=== PATIENT | female | born 1960 | race Caucasian/White ===

== ENCOUNTER 2019-12-26 09:59 | Inpatient (IN) | payer OTHER ==
[~2019-12-26] VITALS: Ht 154.9 cm; Wt 61.7 kg
--- NOTE | 2019-12-26 10:10 | NUR ---
PARAMEDICS GAVE A TOTAL OF 100MCG OF FENTANYL.
--- NOTE | 2019-12-26 10:12 | NUR ---
[employer] AT BEDSIDE OBTAINING REPORT AT THIS TIME. DOCTOR TORSTEN RODRIGUEZ EVALUATED UPON ARRIVAL VIA PARAMEDICS
--- NOTE | 2019-12-26 10:14 | NUR ---
RUG CLEANER HELPER TO TAKE PATIENT TO SCAN.
--- NOTE | 2019-12-26 10:14 | NUR ---
DEPUTY BUSTAMANTE OBTAINED REPORT FROM PATIENT.
[2019-12-26] MEDS ORDERED: ONDANSETRON 4 MG/2 ML VIAL ONE (10:39)
[2019-12-26] MEDS ORDERED: HYDROMORPHONE 2 MG/1 ML DISP.SYRIN ONE (10:39)
[2019-12-26] MEDS ORDERED: ONDANSETRON 4 MG/2 ML VIAL IV ONE (10:45)
[2019-12-26] MEDS ORDERED: HYDROMORPHONE 1 MG/1 ML DISP.SYRIN IV ONE (10:45)
--- NOTE | 2019-12-26 10:47 | NUR ---
PATIENT IS BACK FROM RADIOLOGY DEPARTMENT GIVEN ADDITIONAL PAIN MEDICATION. FOLLOW UP XRAYS BEING DONE AT BEDSIDE
--- NOTE | 2019-12-26 11:08 | NUR ---
PATIENT WILL BE ADMITTED. LAB WORK UP TO BE DONE AND DOCTOR TORSTEN TO CALL [facility] FOR ADMISSION
[2019-12-26] MEDS ORDERED: IV NORMAL SALINE 1000 ML BAG IV ONE (11:15)
[2019-12-26 11:38] LABS: BASOPHILS % (AUTO) 0.2 % (0.0-2.0); EOSINOPHILS # (AUTO) 0.1 K/uL (0.0-0.7); EOSINOPHILS % (AUTO) 0.4 % (0.0-7.0); HEMATOCRIT 40.7 % (31.2-41.9); HEMOGLOBIN 13.4 g/dL (10.9-14.3); MEAN CORPUSCULAR HEMOGLOBIN 28.5 uug (24.7-32.8); MEAN CORPUSCULAR HGB CONC 33 g/dL (32.3-35.6); MEAN CORPUSCULAR VOLUME 86.7 fL (75.5-95.3); MONOCYTES # (AUTO) 0.6 K/uL (2.0-10.0); MONOCYTES % (AUTO) 4.5 % (0.0-11.0); NEUTROPHILS # (AUTO) 11.8 K/uL (1.8-8.9); NEUTROPHILS % (AUTO) 80.9 % (38.5-71.5); PLATELET COUNT (AUTO) 291 K/uL (179-408); RED BLOOD CELL COUNT(AUTO) 4.69 MIL/uL (3.63-4.92); WHITE BLOOD COUNT (AUTO) 14.5 K/uL (3.8-11.8)
--- NOTE | 2019-12-26 11:43 | NUR ---
PATIENT TAKEN FOR ADDITIONAL CT SCAN.
[2019-12-26 11:50] LABS: CREATININE 0.7 mg/dL (0.6-1.3)
--- NOTE | 2019-12-26 11:52 | NUR ---
DOCTOR SARMIENTO SPOKE TO BOTH DOCTOR AARON AND MAURA FOR ADMISSION TO THE HOSPITAL
[2019-12-26] MEDS ORDERED: ACETAMINOPHEN 325 MG TABLET PO PRN (12:00)
[2019-12-26] MEDS ORDERED: MAGNESIUM HYDROXIDE 30 ML LIQUID UDC PO PRN (12:00)
[2019-12-26] MEDS ORDERED: Z GUARD REMEDY PASTE 57 GM TUBE TOP PRN (12:00)
[2019-12-26 12:02] LABS: BILIRUBIN,DIRECT 0.1 mg/dL (0.0-0.2); BILIRUBIN,TOTAL 0.6 mg/dL (0.2-1.0); TOTAL PROTEIN, SERUM 6.9 g/dL (6.4-8.2)
--- NOTE | 2019-12-26 12:24 | NUR ---
REPORT GIVEN TO KELL DUVAL. PATIENT GOING TO ROOM 303
[2019-12-26] MEDS: ONDANSETRON 4 MG/2 ML VIAL IV PRN ×2 (12:58→19:01)
[2019-12-26] MEDS: MORPHINE SULFATE 2 MG/1 ML DISP.SYRIN IV PRN ×3 (13:11→23:45)
[2019-12-26 15:00] VITALS: BP 110/61
--- NOTE | 2019-12-26 15:50 | NUR ---
SPOKE TO DR. AARON AND STATE THAT PATIENT DOES NOT NEED SURGERY, PATIENT NEEDS PAIN CONTROL AND PLACEMENT WITH ORDER FOR WEIGHT BEARING TOLERATED.
--- NOTE | 2019-12-26 19:43 | NUR ---
PATIENT IN BED CONTINUING TO HAVE PAIN AND PRN PAIN MEDICATION GIVEN ORDERED. IV INTACT AND PATENT. CALL LIGHT WITHIN REACH, WILL CONTINUE TO MONITOR.
[2019-12-26 20:56] LABS: *BILIRUBIN,URIN NEGATIVE (NEGATIVE); *BLOOD, URINE 2+ (NEGATIVE); *CLARITY,URINE CLEAR (CLEAR); *COLOR,URINE YELLOW (YELLOW); *KETONES,URINE 1+ (NEGATIVE); *UROBILINOGEN,URINE 0.2 E.U./dl (NORMAL); LEUKOCYTE ESTERASE ,URINE NEGATIVE (NEGATIVE); NITRITE, URINE NEGATIVE (NEGATIVE); PH,URINE 5.5 (5.0-8.0); UGLUCOSE NEGATIVE (NEGATIVE)
[2019-12-26 21:11] LABS: BACTERIA,URINE FEW /HPF (NONE SEEN); SQUAMOUS EPITHELIAL CELL,UR MODERATE /HPF (NONE SEEN)
[2019-12-26 21:12] LABS: URINE AMORPHOUS URATE MODERATE /HPF
[2019-12-26 21:17] VITALS: BP 117/70
[2019-12-26] MEDS: LISINOPRIL 20 MG TABLET PO SCH (22:00)
[2019-12-27] MEDS: MORPHINE SULFATE 2 MG/1 ML DISP.SYRIN IV PRN ×4 (02:21→15:08)
[2019-12-27 05:09] VITALS: BP 114/67
[2019-12-27 06:51] LABS: CREATININE 0.6 mg/dL (0.6-1.3); MAGNESIUM 1.7 mg/dL (1.8-2.4); POTASSIUM 3.4 mmol/L (3.5-5.1)
[2019-12-27 07:28] LABS: BASOPHILS % (AUTO) 0.2 % (0.0-2.0); LYMPHOCYTES % (AUTO) 13.3 % (20.5-51.5); MEAN CORPUSCULAR HEMOGLOBIN 29.8 uug (24.7-32.8); MEAN CORPUSCULAR HGB CONC 35 g/dL (32.3-35.6); MEAN CORPUSCULAR VOLUME 85.2 fL (75.5-95.3); MONOCYTES # (AUTO) 0.5 K/uL (2.0-10.0); MONOCYTES % (AUTO) 6.7 % (0.0-11.0); NEUTROPHILS # (AUTO) 6.1 K/uL (1.8-8.9); NEUTROPHILS % (AUTO) 79.8 % (38.5-71.5); PLATELET COUNT (AUTO) 251 K/uL (179-408); RED BLOOD CELL COUNT(AUTO) 3.83 MIL/uL (3.63-4.92)
--- NOTE | 2019-12-27 07:30 | NUR ---
Patient resting in bed comfortably with no signs of distress and stale vital sings ; patient will continue to be monitored through out shift.
[2019-12-27 07:42] LABS: HEMOGLOBIN 11.4 g/dL (10.9-14.3); WHITE BLOOD COUNT (AUTO) 7.6 K/uL (3.8-11.8)
[2019-12-27 07:43] LABS: HEMATOCRIT 32.7 % (31.2-41.9)
[2019-12-27] MEDS ORDERED: POTASSIUM CHLORIDE 20 MEQ TAB.PRT.SR PO ONE (08:30)
[2019-12-27] MEDS: HYDROCODONE/APAP 5-325MG TABLET PO PRN ×2 (08:37→17:24)
[2019-12-27] MEDS: LISINOPRIL 20 MG TABLET PO SCH ×3 (08:41→21:00)
[2019-12-27] MEDS: buPROPion XL 150 MG TAB.SR.24H PO SCH ×2 (09:00→10:42)
[2019-12-27] MEDS: MAGNESIUM SULFATE/D5W 100 ML IV SCH ×2 (10:42→12:04)
[2019-12-27 11:22] VITALS: BP 120/65
--- NOTE | 2019-12-27 12:06 | NUR ---
Morphine administered to patient at 1204 but when reverified that morphine scanned morphine was pulled in syringe and vial thrown away into sharps container.Morphine entered manually.
--- NOTE | 2019-12-27 13:43 | NUR ---
WOUND CARE CONSULT: PT PRESENTS WITH AREAS OF BRUISING/DISCOLORATION AND ABRASIONS TO BACK, BUTTOCKS, RT KNEE AND RT HIP/GROIN AREA. RECOMMENDATIONS MADE FOR WOUND CARE AND SKIN PROTECTION. PT ABLE TO ASSIST WITH TURNING AND REPOSITIONING IN BED. CURRENT RAMON SCORE IS 15. PT IS CONTINENT WITH GALO AT THIS TIME. WILL SEE PRN. KEY IN AGREEMENT WITH PLAN OF CARE. Addendum: 12/27/19 at 1345 by JAMEL GENTILE RN Amended: Links added.
[2019-12-27 15:34] VITALS: BP 109/54
--- NOTE | 2019-12-27 18:30 | NUR ---
Patient expressing pain through out shift patient managed with prn pain medication; patient stated she and family wanted to speak to surgeon ; surgeon arrived 6:45 and explained and educated to family and patient process of healing based off injury ; patient expressed she is till in pain; i expressed to surgeon and attending that patient had a saturation between 92- 93 towards end of day and placed on nasal canula 3L with an increase of 99% ; surgeon Chris placed orders to decrease morphine to 1mg q3hrs and add Toradol 30mg q8rhs and for diet to change soft; orders received and carried out. Report given to oncoming nurse.
[2019-12-27] MEDS ORDERED: MORPHINE SULFATE 2 MG/1 ML DISP.SYRIN IM PRN (19:30)
[2019-12-27] MEDS: KETOROLAC TROMETHAMINE 30 MG INJ IVP PRN (19:36)
--- NOTE | 2019-12-28 00:33 | NUR ---
patient reported Toradol to be very effective. Slept from 1999 to 29
[2019-12-28] MEDS: HYDROCODONE/APAP 5-325MG TABLET PO PRN ×3 (01:20→17:39)
[2019-12-28] MEDS: KETOROLAC TROMETHAMINE 30 MG INJ IVP PRN ×3 (06:36→21:41)
[2019-12-28 06:54] LABS: BASOPHILS % (AUTO) 0.5 % (0.0-2.0); EOSINOPHILS # (AUTO) 0.1 K/uL (0.0-0.7); EOSINOPHILS % (AUTO) 0.8 % (0.0-7.0); HEMATOCRIT 31.3 % (31.2-41.9); HEMOGLOBIN 10.7 g/dL (10.9-14.3); LYMPHOCYTES # (AUTO) 1.7 K/uL (20.0-40.0); MEAN CORPUSCULAR HEMOGLOBIN 29.1 uug (24.7-32.8); MEAN CORPUSCULAR HGB CONC 34 g/dL (32.3-35.6); MEAN CORPUSCULAR VOLUME 85.3 fL (75.5-95.3); MONOCYTES # (AUTO) 0.6 K/uL (2.0-10.0); MONOCYTES % (AUTO) 7.5 % (0.0-11.0); NEUTROPHILS % (AUTO) 68.2 % (38.5-71.5); PLATELET COUNT (AUTO) 214 K/uL (179-408); RED BLOOD CELL COUNT(AUTO) 3.67 MIL/uL (3.63-4.92); WHITE BLOOD COUNT (AUTO) 7.4 K/uL (3.8-11.8)
[2019-12-28 06:59] LABS: CREATININE 0.6 mg/dL (0.6-1.3); MAGNESIUM 1.9 mg/dL (1.8-2.4); POTASSIUM 3.7 mmol/L (3.5-5.1)
--- NOTE | 2019-12-28 07:30 | NUR ---
Patient calm and comfortable resting in bed with no signs of distress; patient will continue to be monitored.
[2019-12-28] MEDS: LISINOPRIL 20 MG TABLET PO SCH (07:56)
[2019-12-28] MEDS: buPROPion XL 150 MG TAB.SR.24H PO SCH (07:56)
[2019-12-28 11:38] VITALS: BP 121/79
[2019-12-28 15:42] VITALS: BP 129/79
[2019-12-28] MEDS: CLOBETASOL PROPIONATE 0.05% CREAM 15 GM TUBE TP SCH (17:15)
--- NOTE | 2019-12-28 18:05 | NUR ---
Patient with complaints of pain through out shift ;'patient treated with prn pain medication ; md place orders for neurosurgery consult and mri w/o contrast; patient otherwise in stable condition with family at bedside; patent mildly anxious but otherwise with no signs of acute distress.Report given to oncoming nurse.
[2019-12-29] MEDS: HYDROCODONE/APAP 5-325MG TABLET PO PRN ×3 (01:10→16:49)
[2019-12-29 06:35] LABS: BASOPHILS % (AUTO) 0.6 % (0.0-2.0); EOSINOPHILS # (AUTO) 0.2 K/uL (0.0-0.7); EOSINOPHILS % (AUTO) 2.5 % (0.0-7.0); HEMATOCRIT 31.7 % (31.2-41.9); HEMOGLOBIN 10.7 g/dL (10.9-14.3); LYMPHOCYTES # (AUTO) 2.2 K/uL (20.0-40.0); LYMPHOCYTES % (AUTO) 28.3 % (20.5-51.5); MEAN CORPUSCULAR HEMOGLOBIN 28.9 uug (24.7-32.8); MEAN CORPUSCULAR HGB CONC 34 g/dL (32.3-35.6); MEAN CORPUSCULAR VOLUME 85.6 fL (75.5-95.3); MONOCYTES # (AUTO) 0.5 K/uL (2.0-10.0); MONOCYTES % (AUTO) 6.2 % (0.0-11.0); NEUTROPHILS # (AUTO) 4.9 K/uL (1.8-8.9); NEUTROPHILS % (AUTO) 62.4 % (38.5-71.5); PLATELET COUNT (AUTO) 220 K/uL (179-408); WHITE BLOOD COUNT (AUTO) 7.8 K/uL (3.8-11.8)
[2019-12-29 06:51] LABS: CREATININE 0.5 mg/dL (0.6-1.3); MAGNESIUM 2.1 mg/dL (1.8-2.4); PHOSPHOROUS 3.2 mg/dL (2.5-4.9)
[2019-12-29 06:57] VITALS: BP 137/80
[2019-12-29 06:58] VITALS: BP 128/87
--- NOTE | 2019-12-29 07:30 | NUR ---
Patient calm and comfortable with no signs of distress and stable ; patient will continue to be monitored.
[2019-12-29] MEDS: LISINOPRIL 20 MG TABLET PO SCH ×3 (08:58→20:41)
[2019-12-29] MEDS: buPROPion XL 150 MG TAB.SR.24H PO SCH (08:58)
[2019-12-29] MEDS: CLOBETASOL PROPIONATE 0.05% CREAM 15 GM TUBE TP SCH ×2 (09:01→17:12)
[2019-12-29] MEDS ORDERED: HYDROCODONE/APAP 5-325MG TABLET PO ONE (10:30)
--- NOTE | 2019-12-29 10:50 | NUR ---
Patient left for MRI to [facility].
[2019-12-29 12:30] VITALS: BP 130/80
--- NOTE | 2019-12-29 13:00 | NUR ---
Patient returned from MRI in stable condition and no signs of distress.
[2019-12-29] MEDS: KETOROLAC TROMETHAMINE 30 MG INJ IVP PRN ×2 (14:40→23:21)
--- NOTE | 2019-12-29 15:20 | NUR ---
Patient spoke with MD Ferrera neurosurgery about MRI results and family requesting to be transferred out to [facility] case management working on possibilities
[2019-12-29 15:28] VITALS: BP 137/88
--- NOTE | 2019-12-29 18:54 | NUR ---
Patient with bouts of pain through out shift and given prn medication ; patient sister at bedside; after speaking to neurosurgeon and Md suggesting spinal surgery ; patient decided to be transferred out to either [facility] or [facility]; case management working on transferring out patient per request; patient with stable vital signs and no acute signs of distress.
[2019-12-29 20:11] VITALS: BP 127/88
[2019-12-29] MEDS: MORPHINE SULFATE 2 MG/1 ML DISP.SYRIN IV PRN (20:39)
--- NOTE | 2019-12-29 20:42 | NUR ---
patient refused lisinopril despite education. explains to me that it makes her nauseas and that she will throw up. she will only take it in the morning. will waste in Pyxis.
--- NOTE | 2019-12-29 22:39 | NUR ---
chapis perez np ordered Ambien 5mg one time to be administered for patient c/o of insomnia.
[2019-12-29] MEDS ORDERED: ZOLPIDEM 5 MG TABLET PO ONE (22:45)
[2019-12-30 04:42] VITALS: BP 125/80
[2019-12-30] MEDS: HYDROCODONE/APAP 5-325MG TABLET PO PRN ×4 (04:44→18:57)
--- NOTE | 2019-12-30 08:00 | NUR ---
Received pt. resting in bed alert oriented x4. Pt. has IV in R Wrist 22 gauge intact patent saline lock. Pt. is using oxygen as comfort for sleeping and states she removes it during the day. Educated pt. on room air her oxygen is within normal limits. Educated pt. that Dr. Ferrera neuro doctor and Dr. Rincon hospitalist advise her to keep HOB >45. Pt. is aware but states it hurts her back to keep it lower. Educated pt. on risks and benefits. Safety measures in place. call light within reach. will continue to monitor pt.
[2019-12-30] MEDS: KETOROLAC TROMETHAMINE 30 MG INJ IVP PRN ×2 (08:20→16:17)
[2019-12-30] MEDS: buPROPion XL 150 MG TAB.SR.24H PO SCH (08:20)
[2019-12-30] MEDS: LISINOPRIL 20 MG TABLET PO SCH ×2 (08:20→21:00)
[2019-12-30] MEDS: CLOBETASOL PROPIONATE 0.05% CREAM 15 GM TUBE TP SCH ×2 (08:21→18:57)
[2019-12-30 11:45] VITALS: BP 125/80
--- NOTE | 2019-12-30 12:30 | NUR ---
Provided pt. with wound care for lower back abrasions as ordered. All vitals within normal limits. pt. wishes to be discharged to [facility] or [facility]. Case Management on case. LEONCIO brace came to hospital for fitting. pt. did not want brace because she wants to be transferred. Hospitalist Barbara Rincon came in to talk to pt. and educated pt. on importance of brace to stabilize spine while waiting for transfer. Pt. understands and agrees to temporary brace. [facility] brace representatives will come back later today for temporary brace and proper education to pt. and RN. Pt. is in no distress at this moment. Provided pt. with PRN Toradal for pain and PRN Riverside for break through pain. pt. aware of plan of care
[2019-12-30] MEDS ORDERED: MIRALAX 17 GM POWD.PACK PO ONE (13:00)
--- NOTE | 2019-12-30 16:51 | NUR ---
12:20 Barbara Mckenzie offered to call Dr. Jeff as another neuro surgeon consult and her sister agreed. She spoke to Dr. Jeff's WOOD BORER, Carlos, and updated him on the patient's condition. 13:44 Joy from the [facility] [ ; Fax([phone]] called and requested for the patient's Facesheet, H&P and the last 2 days of Progress Notes to be faxed to them along with the signed Transfer Back Agreement. 14:30 Debbie spoke to the patient's sister and updated her on the possible transfer to [facility] but she complained that it is too far for her and her family but would like to think about it. Dr. Rincon spoke to both the patient and her sister the reason for transferring to [facility] and they requested for Dr. Jeff to give them a call. Updated Joy from their Transfer Center. 16:29 Bigg from [facility] Transfer Center [ ; ] called to confirm that the patient is still waiting for a transfer. He will try to present her case the their admitting MDs. 17:05 The patient's sister came in the office saying that she made a mistake. She stated that she spoke to a Katie from [facility] and she told them to make our hospitalist call [facility] and pressure them to take the patient and she gave a phone number to call them - . She said she spoke to someone from the Transfer Center and she found out that they are looking for a neurosurgeon to admit but when that person found out that she was not from [facility] and is the sister, he stated. "I shouldn't be giving you these information. I already spoke to Radha from ." She verbalized that she is leaning towards waiting for [facility] and not [facility].
--- NOTE | 2019-12-30 17:38 | NUR ---
KARTIK was informed by Lisa, the patient's sister that they have an admitting spine surgeon by the name of Dr. Matt Solis @ [phone]. KARTIK called and spoke with Ramana from the [facility] center @ [phone] and updated her on the admitting doctor for the patient. According to Ramana, she will be paging the doctor to confirm this information.
--- NOTE | 2019-12-30 18:01 | NUR ---
AKRTIK received a call back from Ramana from [facility] transfer center P:[phone] F:[phone] Matt Solis [phone] will be the accepting doctor at [facility] however, there are still no beds. Barbara IBARRA aware and will work on the discharge summary. KARTIK spoke with both the patient and her sister Lisa and have agreed with the [facility] transfer and they are aware that there are no beds at this time. Ana charge nurse and Mary DUVAL aware of discharge/transfer to [facility] once there is a bed open.
--- NOTE | 2019-12-30 18:44 | NUR ---
Maria D from [facility] [ ] called and stated that they are putting the patient back on their list for transfer. She will follow-up with her team tomorrow morning. Updated the patient about the status of [facility] waiting for a bed and [facility] placing her back in their list. She was very thankful and wanted to thank the nursing staff for the care she received.
--- NOTE | 2019-12-30 19:00 | NUR ---
Pt. resting comfortably in bed. Pain controlled with PRN Toradol and PRN norco. Temporary brace came in for pt at around 5 PM; however, Physical therapy is not here to help adjust the brace on the pt. Will have to have brace put on pt. tomorrow AM when PT. is available. Received call from Davey at [facility] # [phone] spoke to Radha from case management about phone call. Pt. is to be possible transferred to [facility] bed is available. Educated pt. to keep HOB greater than 45 degrees. Pt. refuses and states its not comfortable for her. Explained risks and benefits.
--- NOTE | 2019-12-30 19:45 | NUR ---
RECEIVED PATIENT AWAKE IN BED. PATIENT IS A/O X4. C/O PAIN IN UPPER BACK. IN SUPINE POSITION AT 45 DEGREE ANGLE. TEMPERATURE 99.9. PATIENT GIVEN TYLENOL 650MG PO PRN FOR TEMP. ALL OTHER VSS. IV NOTED TO LEFT WRIST DISLODGED. REMOVED. CALL LIGHT IN LIGHT. ALL NEEDS ATTENDED. WILL CONTINUE TO MONITOR AND ASSESS.
[2019-12-30 20:00] VITALS: BP 114/81
[2019-12-30] MEDS: MORPHINE SULFATE 2 MG/1 ML DISP.SYRIN IV PRN (20:12)
[2019-12-30] MEDS: ONDANSETRON 4 MG/2 ML VIAL IV PRN (20:12)
--- NOTE | 2019-12-30 20:45 | NUR ---
PATIENT C/O PAIN IN BACK 07/03. PATIENT GIVEN MORPHINE 2MG IV PRN FOR PAIN AND ZOFRAN 4MG IV PRN FOR NAUSEA. PLACED ON O2 3L NC FOR COMFORT. CALL LIGHT IN REACH. ALL NEEDS ATTENDED. WILL CONTINUE TO MONITOR AND ASSESS. Addendum: 12/30/19 at 2346 by GODFREY PASTOR LVN CLARIFICATION. PAIN MED AND ZOFRAN GIVEN AT 2015.
--- NOTE | 2019-12-30 20:45 | NUR ---
PATIENT AFEBRILE AT THIS TIME. 98.9 ALL NEEDS ATTENDED.
--- NOTE | 2019-12-30 21:15 | NUR ---
PATIENT AWAKE IN BED. APPEARS VERY ANXIOUS. C/O CHEST PAIN AND RADIATING DOWN LEFT ARM. PATIENT SATING 100% ON O2 2L NC AND ALL VSS. PATIENT STATED SHE DOES FEEL A LITTLE ANXIOUS. CALLED OUT TO DR. EMANUEL FOR FURTHER ORDERS. CALL LIGHT IN REACH. ALL NEEDS ATTENDED. WILL CONTINUE TO MONITOR AND ASSESS.
--- NOTE | 2019-12-30 21:30 | NUR ---
RECEIVED NEW ORDERS PER DR. EMANUEL. WILL CONTINUE TO MONITOR AND ASSESS.
[2019-12-30] MEDS ORDERED: ALPRAZOLAM 0.25 MG TABLET PO STA (21:41)
--- NOTE | 2019-12-30 21:55 | NUR ---
EKG AND STAT TROPONIN DONE. PATIENT GIVEN XANAX 0.25MG PO PRN FOR ANXIETY ORDERED PER MD. VSS. ALL NEEDS ATTENDED. WILL CONTINUE TO MONITOR AND ASSESS.
--- NOTE | 2019-12-30 22:15 | NUR ---
PATIENT RESTING IN BED. STATING THAT SHE FEELS A LITTLE BETTER NOW. APPEARS CALM. VSS. CALL LIGHT IN REACH. ALL NEEDS ATTENDED. WILL CONTINUE TO MONITOR AND ASSESS.
--- NOTE | 2019-12-30 23:00 | NUR ---
PATIENT ASLEEP IN BED. RESTING WELL. ALL NEEDS ATTENDED.
[2019-12-31] MEDS ORDERED: ZOLPIDEM 5 MG TABLET PO ONE
[2019-12-31] MEDS: KETOROLAC TROMETHAMINE 30 MG INJ IVP PRN ×3 (00:11→16:39)
[2019-12-31] MEDS: MORPHINE SULFATE 2 MG/1 ML DISP.SYRIN IV PRN ×4 (02:47→21:45)
[2019-12-31 06:01] VITALS: BP 112/70
[2019-12-31] MEDS: HYDROCODONE/APAP 5-325MG TABLET PO PRN ×4 (06:09→19:58)
--- NOTE | 2019-12-31 07:53 | NUR ---
alert, oriented, asking for TORADOL this time, 30mg ivp given per request. Awaiting to get transferred to [facility].
[2019-12-31] MEDS: LISINOPRIL 20 MG TABLET PO SCH ×2 (07:55→20:01)
[2019-12-31] MEDS: buPROPion XL 150 MG TAB.SR.24H PO SCH (07:56)
[2019-12-31 08:00] VITALS: BP 129/85
--- NOTE | 2019-12-31 08:47 | NUR ---
checking her record, NO BM since admission, offered MOM right now, declined
[2019-12-31] MEDS: CLOBETASOL PROPIONATE 0.05% CREAM 15 GM TUBE TP SCH ×2 (08:51→17:02)
[2019-12-31] MEDS: MIRALAX 17 GM POWD.PACK PO SCH (09:33)
--- NOTE | 2019-12-31 10:23 | NUR ---
braces applied by PT, Miralax offered, " will take it when I am ready", right now hot pads, and NORCO. One po Sharon given for pain
[2019-12-31 11:00] VITALS: BP 137/83
--- NOTE | 2019-12-31 11:24 | NUR ---
this time, asked for MSO4, which is not available in [facility], agreed with NORCO, one po given , with relief
--- NOTE | 2019-12-31 14:06 | NUR ---
just now asking for mso4, 2mg ivp, ready to give, changed mind. " Want NORCO , instead, now" given per request, one po
[2019-12-31] MEDS ORDERED: SORBITOL 70% SOLUTION 30 ML UDC PO ONE (14:15)
[2019-12-31] MEDS ORDERED: IBUPROFEN 200 MG TABLET PO PRN (14:15)
[2019-12-31] MEDS ORDERED: LACTULOSE 20 G/30 ML LIQUID UDC PO ONE (14:15)
--- NOTE | 2019-12-31 15:25 | NUR ---
MIRALAX, prune juice did not seem to help with constipation. Now got Sorbitol 70% lela'n and lactulose , patient made aware to inform us of the results.
--- NOTE | 2019-12-31 15:43 | NUR ---
Received report from QAMAR DUVAL
[2019-12-31 16:00] VITALS: BP 134/82
--- NOTE | 2019-12-31 18:51 | NUR ---
Patient in Bed, awake and verbally responsive. No signs of distress noted. NO SOB. Pain Medication given as ordered. Still awaiting for Bed availability at [facility]. All needs attended and met. kept clean and comfortable. Will endorse to Oncoming Nurse.
[2019-12-31 20:03] VITALS: BP 154/96
--- NOTE | 2019-12-31 21:07 | NUR ---
patient c/o of insomnia. dr. polo ordered restoril 15 mg one time. will administer and continue plan of care for patient.
[2019-12-31] MEDS ORDERED: TEMAZEPAM 15 MG CAPSULE PO ONE (21:15)
[2020-01-01] MEDS: KETOROLAC TROMETHAMINE 30 MG INJ IVP PRN ×3 (01:47→16:28)
[2020-01-01] MEDS: HYDROCODONE/APAP 5-325MG TABLET PO PRN ×5 (04:22→20:57)
[2020-01-01 05:55] LABS: BASOPHILS % (AUTO) 0.5 % (0.0-2.0); EOSINOPHILS # (AUTO) 0.2 K/uL (0.0-0.7); EOSINOPHILS % (AUTO) 2.7 % (0.0-7.0); HEMATOCRIT 30.6 % (31.2-41.9); HEMOGLOBIN 10.7 g/dL (10.9-14.3); LYMPHOCYTES # (AUTO) 1.8 K/uL (20.0-40.0); MEAN CORPUSCULAR HEMOGLOBIN 29.8 uug (24.7-32.8); MEAN CORPUSCULAR HGB CONC 35 g/dL (32.3-35.6); MEAN CORPUSCULAR VOLUME 85.3 fL (75.5-95.3); MONOCYTES # (AUTO) 0.7 K/uL (2.0-10.0); MONOCYTES % (AUTO) 8.1 % (0.0-11.0); NEUTROPHILS # (AUTO) 6.2 K/uL (1.8-8.9); NEUTROPHILS % (AUTO) 68.7 % (38.5-71.5); PLATELET COUNT (AUTO) 325 K/uL (179-408); RED BLOOD CELL COUNT(AUTO) 3.58 MIL/uL (3.63-4.92)
[2020-01-01 06:18] LABS: CREATININE 0.7 mg/dL (0.6-1.3); MAGNESIUM 1.8 mg/dL (1.8-2.4); PHOSPHOROUS 3.8 mg/dL (2.5-4.9); POTASSIUM 4.8 mmol/L (3.5-5.1)
--- NOTE | 2020-01-01 07:24 | NUR ---
patient received lying in bed with family and friend at bedside. v/s stable throughout shift and no signs of acute distress. safety and comfort measures provided. PIV and shelton catheter intact and patent. HOB at 45 degrees and TSLO brace on at all times. all medications administered and needs met. wound care on anterior hip area provided. patient refused back wound care treatment. will continue plan of care and endorse to morning nurse.
[2020-01-01] MEDS: buPROPion XL 150 MG TAB.SR.24H PO SCH (08:34)
[2020-01-01] MEDS: MIRALAX 17 GM POWD.PACK PO SCH (08:34)
[2020-01-01] MEDS: LISINOPRIL 20 MG TABLET PO SCH ×2 (08:34→20:57)
--- NOTE | 2020-01-01 08:38 | NUR ---
A call was placed to the [facility] Transfer Center [phone] and spoke with Tiara who stated to call the Patient Placement @ [phone]. Per Tiara: the the Patient Placement nurses will not know about any discharges until 10:30am and suggested to call fariha at that time. Tiara confirmed that the transfer summary and progress notes were received yesterday.
[2020-01-01] MEDS: CLOBETASOL PROPIONATE 0.05% CREAM 15 GM TUBE TP SCH ×2 (08:54→16:16)
[2020-01-01 11:07] VITALS: BP 143/95
--- NOTE | 2020-01-01 11:16 | NUR ---
A call was placed to the Patient Placement @ [phone] option 2, option 2 and was informed that there are no beds at this time and maybe this afternoon they' will have a bed opening.
[2020-01-01 15:01] VITALS: BP 132/90
[2020-01-01] MEDS ORDERED: SORBITOL 70% SOLUTION 30 ML UDC PO ONE (15:45)
[2020-01-01] MEDS ORDERED: LACTULOSE 20 G/30 ML LIQUID UDC PO ONE (15:45)
[2020-01-01] MEDS ORDERED: ALPRAZOLAM 0.25 MG TABLET PO PRN (16:00)
[2020-01-01] MEDS ORDERED: ZOLPIDEM 5 MG TABLET PO PRN (16:00)
--- NOTE | 2020-01-01 17:23 | NUR ---
KARTIK called and spoke with the Patient Placement @ [phone] and was informed that there were no beds at this time and that it would probably be till tomorrow. KARTIK informed the patient's sister, Lisa that since it was a lateral transfer it might take longer for a bed. Per patient's sister: she stated that this transfer should not be a lateral transfer. This report back tracked notes and unable to find the type of transfer. This report called the [facility] Transfer Center and spoke with Tiara, who stated that this transfer was a family request lateral transfer. The patient's sister got upset and stated that this is not a family request lateral transfer and it should be a higher level of care. Per Tiara: since the patient was offered a higher level of care services at [facility] and was refused, she stated it would still be consider a lateral transfer. Tiara from the [facility] transfer is unable to change the transfer to higher level of care unless stated by /FRED. The patient's sister started yelling at this report that she was going to indy me and the hospital and started to point her finger at in my face. This mop maker informed the patient's sister to stop yelling at me and that I could help her and the patient but she would be asked to leave if she didn't stop yelling at me and asked her to lower her voice. Per Tiara at the [facility]: stated that the patient's sister was out of control. KARTIK called and spoke with Barbara Rincon DNP, and explained what had occurred, according to Mckenzie IBARRA, she has always stated that this was a higher level of care and is not aware where the miscommunication occurred. This mop maker is aware that this case was a higher level of care as well but thought since family had refused previous transfers to [facility] and [facility] is was now a lateral transfer. KARTIK called in charge nurse to witness further interactions with the Lisa and this mop maker. Lisa stated that she would call her own witness as well. Per Mckenzie IBARRA, orders to change initial family request lateral transfer to higher level of care. This mop maker called Tiara at the [facility] Transfer Center: who stated that she would change the status of this transfer starting on 12/30/[address] Solis accepted the patient. Mckenzie IBARRA aware and Lisa aware.
--- NOTE | 2020-01-01 19:47 | NUR ---
Patient is received awake, alert and verbally responsive. Head of bed elevated 45 degrees, with no c/o SOB, discomfort nor pain. Pain medications given prior shift still effective, according to her. Family is at bedside. No needs at this time. Indwelling shelton catheter draining well, with no issues. Kept call light within reach. Will continue to monitor.
[2020-01-01 20:03] VITALS: BP 136/91
[2020-01-02] MEDS: KETOROLAC TROMETHAMINE 30 MG INJ IVP PRN ×2 (01:42→10:05)
[2020-01-02] MEDS: HYDROCODONE/APAP 5-325MG TABLET PO PRN ×3 (04:06→13:35)
[2020-01-02 05:28] VITALS: BP 138/90
[2020-01-02] MEDS: buPROPion XL 150 MG TAB.SR.24H PO SCH (08:41)
[2020-01-02] MEDS: MIRALAX 17 GM POWD.PACK PO SCH (08:48)
[2020-01-02] MEDS: LISINOPRIL 20 MG TABLET PO SCH (08:48)
[2020-01-02] MEDS: CLOBETASOL PROPIONATE 0.05% CREAM 15 GM TUBE TP SCH (09:11)
[2020-01-02 11:01] VITALS: BP 137/92
[2020-01-02] MEDS ORDERED: KETOROLAC TROMETHAMINE 15 MG INJ IM ONE (11:30)
[2020-01-02] MEDS ORDERED: ALPRAZOLAM 0.25 MG TABLET PO ONE (14:15)
[2020-01-02] MEDS ORDERED: LACTULOSE 20 G/30 ML LIQUID UDC PO PRN (14:15)
--- NOTE | 2020-01-02 14:32 | NUR ---
10:01 The patient's sister, Lisa [ ] called and updated this certified shorthand reporter on how frustrated they were. 10:04 Called [facility] Transfer Center and spoke to Gentry [ ] who stated that they do not have any beds available and he also confirmed that the transfer is for a higher level of care. He requested to call back in the afternoon after they have discharged patients. 10:06 Updated Lisa that they still do not have any beds but it is for sure a higher level of care. 13:03 Mikayla from [facility] Transfer [place] called and stated they still do not have any beds but is making sure that her chart is copied along with the recent Discharge Summary and the Imaging. 13:48 Called [facility] once again because the patient's friends went into her room and told her that there are beds available at [facility]. Spoke to Gentry and explained the situation and he said they still do not have any beds available. Updated the patient and her friends in the room on what Gentry said. The patient started crying and her friend said that it is a lie because she went to [facility] [place] personally and she spoke to admissions who said that they always have room and to just take the patient to the ER. Explained to them that their ER is always their priority and the patient is not going through the ER, she will be transferred as a higher level of care and will go directly to the medical floor. 13:57 Spoke to the patient's sister and requested for her to talk to their friends not to make the patient anxious. Updated her on what happened and she understood. Spoke to both the patient's friends outside of the room and suggested for them to only be supportive and not add the the patient's anxiety. One of them stated "I am only doing what she told me to do." referring to the patient. Informed her that the patient's sister is the main contact officer and if they have any questions, to ask Lisa or directly ask this certified shorthand reporter. One of them was very defensive and the other seemed to have understood. Informed them that we are only waiting for [facility] to call back when a bed is available. 14:09 Gentry from [facility] Transfer [place] called and confirmed that they have a bed available. She will be going to [facility] [place] [[address] [place] [place] [address]] to [address] [place] [address] Room# [id number] and the nurse needs to call for the report. He wanted a call back to what time the ambulance will transport the patient. Updated her RN, Carol Ann, and Luda to arrange transportation. 14:30 Updated the patient's sister about the bed availability and that transportation will be picking her up at around 16:00 and she was very thankful. 14:40 Called Gentry from [facility] Transfer Center and informed him that the ambulance will transfer the patient at around 16:00.
--- NOTE | 2020-01-02 15:00 | NUR ---
midline inserted left brachial 20 gauge.
--- NOTE | 2020-01-02 16:15 | NUR ---
Transfer patient to [facility] for higher level of care. discharge instruction given and verbalized understanding, no SOB noted no c/o pain at this time. shelton and midline remains for continuity of use. belongings accounted for and signed. questions and concerns addressed.
[2020-01-02] MEDS ORDERED: SORBITOL 70% SOLUTION 30 ML UDC PO SCH (18:00)
== END 2020-01-02 16:30 | disposition short-term general hospital (02) | DRG 552 ==
LOC: ER 09:59 → MEDSURG3 12:18
PROVIDERS: ADMIT Family Medicine; ATTEND Family Medicine
PROC: 05HA33Z Insertion of Infusion Device into Left Brachial Vein, Percutaneous Approach (ICD-10-PCS; principal; 2020-01-02)
DX: S22.080A Wedge compression fracture of T11-T12 vertebra, initial encounter for closed fracture (principal); S22.41XA Multiple fractures of ribs, right side, initial encounter for closed fracture; D68.59 Other primary thrombophilia; S22.079A Unspecified fracture of T9-T10 vertebra, initial encounter for closed fracture; S22.069A Unspecified fracture of T7-T8 vertebra, initial encounter for closed fracture; V03.00XA Pedestrian on foot injured in collision with car, pick-up truck or van in nontraffic accident, initial encounter; Y92.89 Other specified places as the place of occurrence of the external cause; M51.36 Other intervertebral disc degeneration, lumbar region; E87.6 Hypokalemia; I10 Essential (primary) hypertension; M19.90 Unspecified osteoarthritis, unspecified site; F32.9 Major depressive disorder, single episode, unspecified; E83.42 Hypomagnesemia; M47.814 Spondylosis without myelopathy or radiculopathy, thoracic region; Z87.891 Personal history of nicotine dependence; Z82.49 Family history of ischemic heart disease and other diseases of the circulatory system; Z74.09 Other reduced mobility; M48.04 Spinal stenosis, thoracic region; M77.9 Enthesopathy, unspecified; M41.86 Other forms of scoliosis, lumbar region; D72.829 Elevated white blood cell count, unspecified
CPT/HCPCS: 36415; 70030-TC; 71045; 72072; 72100; 72192; 73030; 83690; 83735; 84100; 85025; 87086; 87400; 93005; A4663; G0378; J1170; J1885; J2270; J2405; J3475; J7030; J7050